=== PATIENT | male | born 1960 | race American Indian/Alaskan Native ===

== ENCOUNTER 2019-03-27 13:13 | Outpatient (CLI) | payer OTHER ==
--- NOTE | 2019-03-27 15:43 | XRay Report ---
SKELETAL SURVEY INDICATION / CLINICAL INFORMATION: Monoclonal gammopathy R20.8. COMPARISON: None available. FINDINGS: SKULL: No lytic or blastic lesion. C-SPINE: No lytic or blastic lesion. HUMERI: 2 lucent lesions in the mid shaft of the left humerus. Single small lucent lesion in the dist al shaft of the right humerus. CHEST: No lytic or blastic lesion. T-SPINE: No lytic or blastic lesion. L-SPINE: No lytic or blastic lesion. Mild degenerative spondylosis at L5-S1. PELVIS: No lytic or blastic lesion. FEMORA: Small lucent lesion in the proximal right femoral shaft. No left femoral lucent lesions. Inci dental note is made of bilateral multi partite patella, an anatomic variant. ADDITIONAL FINDINGS: None. IMPRESSION: 1. Several small lucent lesions within both humeri and the right femur. Continued clinical, laborator y, and radiographic follow-up for multiple myeloma is recommended. Signer Name: Rj Gonzalez MD Signed: 03/27/2019 3:38 PM Workstation Name: [id number]
== END 2019-03-27 13:14 | disposition home or self-care (01) ==
LOC: SPVIMAG 13:13
PROVIDERS: ATTEND Internal Medicine Hematology & Oncology
DX: M47.817 Spondylosis without myelopathy or radiculopathy, lumbosacral region (principal); M89.9 Disorder of bone, unspecified; R20.8 Other disturbances of skin sensation
CPT/HCPCS: 77074